=== PATIENT | male | born 1960 | race Two or more races ===

== ENCOUNTER → 2024-03-04 | Outpatient (CLI) | payer MEDICARE, OTHER, SELFPAY ==
[2024-03-04 09:04] LABS: Thyroid Stimulating Hormone 9.48 uIU/mL (0.55-4.78)
== END | disposition home or self-care (01) ==
LOC: SCTO 07:51
PROVIDERS: PCP Family Medicine; Referring Provider Radiology Therapeutic Radiology; Visit Provider Radiology Therapeutic Radiology
DX: C73 Malignant neoplasm of thyroid gland (principal)
CPT/HCPCS: 36415; 84443

== ENCOUNTER 2024-03-05 08:51 | Outpatient (RCR) | payer MEDICARE, OTHER, SELFPAY ==
--- NOTE | 2024-03-05 10:15 | CTCFLWUP_ITS ---
[facility] [address] [place], [place] [address] FOLLOW-UP NOTE Date: 03/05/2024 MR#: [id number] Name: EMILIANA GATES : 1960 Dx: C73 Malignant neoplasm of thyroid gland Identification. 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 TSH cannot be elevated spite being off thyroid for a long period time and was referred to [facility] where h e underwent right neck dissection 11/08/2023 and 6 out of 37 lymph nodes positive with largest metasta tic deposit 3.5 cm with extranodal extension present and paratracheal dissection revealing 6 of 12 ly mph nodes positive for papillary thyroid carcinoma. Size of largest metastatic deposit with 2 cm wit h extranodal extension present. In left neck 36 nodes negative for mets. In anticipation of performing VALADEZ due to extensive neck disease patient has been off thyroid medicati on for several weeks but his TSH has remained insufficiently elevated most recently 9.48 on 03/04/2024 . Spoke to Dr. Whalen about using Thyrogen to raise his TSH and perform radioactive iodine ablation follo wed by total by iodine scan. Spoke to patient who has been doing well off thyroid medications. Patient agreed to procedure and co nsent signed. Radiation safety instructions as well as avoiding iodine related foods discussed. Pharmacy and nuclear medicine informed. Electronically signed by: Surya Hui M.D. 03/05/2024 10:13 AM
== END 2024-03-30 23:59 | disposition home or self-care (01) ==
LOC: SCTC 08:51
PROVIDERS: PCP Family Medicine; Referring Provider Family Medicine; Visit Provider Radiology Therapeutic Radiology
DX: C73 Malignant neoplasm of thyroid gland (principal); E89.0 Postprocedural hypothyroidism
CPT/HCPCS: 99213; G0463

== ENCOUNTER → 2024-04-17 | Outpatient (CLI) | payer MEDICARE, OTHER, SELFPAY ==
--- NOTE | 2024-04-17 08:58 | XR_ITS ---
Examination: Nuclear medicine whole body thyroid scan Exam date and time: 11/25/2023 0800 hours INDICATIONS: Diagnosis malignant neoplasm thyroid gland status post thyroidectomy May 2023 TECHNIQUE AND FINDINGS: Oral administration 151 mCi I-131 Anterior posterior whole body images and pinhole images thyroid bed Increased isotope accumulation in the right and left thyroid bed and tiny area of increased isotope accumulation above the thyroid bed submental IMPRESSION: Increased isotope accumulation in the right and left thyroid bed and area above the thyroid bed
== END | disposition home or self-care (01) ==
LOC: SNUC 08:41
PROVIDERS: PCP Family Medicine; Referring Provider Radiology Therapeutic Radiology; Visit Provider Radiology Therapeutic Radiology
DX: C73 Malignant neoplasm of thyroid gland (principal)
CPT/HCPCS: 78018; A9517

== ENCOUNTER 2024-04-30 07:54 | Outpatient (RCR) | payer MEDICARE, OTHER, SELFPAY ==
--- NOTE | 2024-04-02 09:15 | CTCFLWUP_ITS ---
[facility] [address] [place], [place] [address] FOLLOW-UP NOTE Date: 04/02/2024 MR#: [id number] Name: EMILIANA GATES : 1960 Dx: C73 Malignant neoplasm of thyroid gland Identification. Patient with history of stage II [id number] papillary thyroid carcinoma status post tot al thyroidectomy right neck dissection 05/11/2023. Patient went to [facility] where additional surgery was performed 11/08/2023 revealing 6 of 37 lymph nodes po sitive with largest metastatic deposit 3.5 cm with extranodal extension present and paratracheal diss ection revealing 6 of 12 lymph nodes positive for papillary carcinoma. Tumor involves soft tissue. L neck 36 lymph nodes negative for mets. Patient now being prepared for radioactive iodine 150 mCi with Thyrogen l preparation. Patient feeling well is taking thyroid supplements had a good trip to [place] and back Spoke with nuclear medicine who will arrange to have 150 mCi of reactive with iodine-131 04/17/2024. Patient will get dose of Thyrogen on Monday and Monday, 04/15/2020 08/11/1723 previous to the radioio dine isotope.. Total body iodine scan we done 1 week later. Radiation safety explanation reviewed. Electronically signed by: Surya Hui M.D. 04/02/2024 9:12 AM
== END 2024-04-30 23:59 | disposition home or self-care (01) ==
LOC: SCTC 07:54
PROVIDERS: PCP Family Medicine; Referring Provider Family Medicine; Visit Provider Radiology Therapeutic Radiology
DX: C73 Malignant neoplasm of thyroid gland (principal); E89.0 Postprocedural hypothyroidism
CPT/HCPCS: 96372; 99213; J3240; G0463

== ENCOUNTER → 2024-04-30 | Outpatient (CLI) | payer MEDICARE, OTHER, SELFPAY ==
[2024-04-30 09:50] LABS: Basophils # (Auto) 0.1 Thou/mm3 (0.0-0.2); Basophils % (Auto) 1 % (0-2.5); Eosinophils # (Auto) 0.5 Thou/mm3 (0.0-0.5); Eosinophils % (Auto) 5 % (0-10); Hematocrit 45.6 % (41.0-53.0); Hemoglobin 14.8 g/dL (13.5-16.0); Immature Granulocytes % (Auto) 1 % (0-0); Immature Granulocytes Auto 0.05 Thou/mm3 (0.00-0.00); Lymphocytes # (Auto) 1.9 Thou/mm3 (1.0-4.8); Lymphocytes % (Auto) 17 % (10-50); Mean Corpuscular HGB Conc 32.5 g/dl (31.0-37.0); Mean Corpuscular Hemoglobin 27.7 pg (25.0-35.0); Mean Corpuscular Volume 85 fL (80-100); Monocytes # (Auto) 1.1 Thou/mm3 (0.0-0.8); Monocytes % (Auto) 10 % (0-12); Neutrophils # (Auto) 7.3 Thou/mm3 (1.8-7.7); Neutrophils % (Auto) 67 % (37-80); Nucleated Red Blood Cell % 0 /100 WBC (0); Platelet Count 305 Thou/mm3 (140-440); RDW Standard Deviation 46.5 fL (35.1-43.9); Red Blood Count 5.34 Miln/mm3 (4.50-5.90); White Blood Count 10.9 Thou/mm3 (3.8-10.6)
[2024-04-30 10:09] LABS: Alanine Aminotransferase 28 U/L (10-49); Albumin, Serum 4.8 gm/dL (3.4-4.8); Albumin/Globulin Ratio 1.8 (1.2-2.2); Alkaline Phosphatase 101 U/L (46-116); Anion Gap 8 (7-16); Aspartate Amino Transferase 22 U/L (0-34); BUN/Creatinine Ratio 18 Ratio (12-20); Bilirubin,Total 0.6 mg/dL (0.3-1.2); Blood Urea Nitrogen 18 mg/dL (9-23); Calcium 10.3 mg/dL (8.3-10.6); Calcium (Corrected) 10.3 mg/dL (8.5-10.1); Carbon Dioxide 26.9 mMol/L (20.0-31.0); Chloride 107 mMol/L (98-107); Free T4 (Free Thyroxine) 1.72 ng/dL (0.89-1.76); Globulin 2.7 gm/dL (2.3-3.5); Glucose 94 mg/dL (74-106); Osmolality,Calculated 285 (275-295); Potassium 5.1 mMol/L (3.4-5.1); Sodium 142 mMol/L (136-145); Thyroid Stimulating Hormone 0.04 uIU/mL (0.55-4.78); Total Protein 7.5 gm/dL (5.7-8.2); eGFR > 60 See Note
[2024-05-04 13:49] LABS: Thyroglobulin Antibodies >1000 IU/mL (< OR = 1)
[2024-05-06 06:49] LABS: Thyroglobulin <0.1 ng/mL
== END | disposition home or self-care (01) ==
PROVIDERS: PCP Family Medicine; Referring Provider Radiology Therapeutic Radiology; Visit Provider Radiology Therapeutic Radiology
DX: C73 Malignant neoplasm of thyroid gland (principal)
CPT/HCPCS: 36415; 80053; 84432; 84439; 84443; 85025; 86800

== ENCOUNTER → 2024-06-21 | Outpatient (CLI) | payer MEDICARE, OTHER, SELFPAY ==
[2024-06-21 08:55] LABS: Collection Type, Urine Clean Catch; Squamous Epithelial Cell,Urine 0 /hpf (0-5)
[2024-06-21 09:38] LABS: Bilirubin,Urine Negative (Negative); Blood,Urine Negative (Negative); Clarity,Urine Clear (Clear/Hazy); Color,Urine Lt-Yellow (Lt Yel-Yel); Glucose, Urine Negative (Negative); Ketones,Urine Negative (Negative); Leukocyte Esterase,Urine Negative (Negative); Nitrite,Urine Negative (Negative); PH,Urine 5.5 (5.0-7.0); Protein,Urine Negative (Neg - Trace); RBC,Urine 1 /hpf (0-3); Specific Gravity,Urine 1.023 (1.001-1.035); Urobilinogen,Urine Negative mg/dL (0.0-1.0); WBC,Urine 1 /hpf (0-5)
[2024-06-21 09:43] LABS: Glucose Estimated Average 117 mg/dL (80-131); Hemoglobin A1C 5.7 % Hgb (4.8-6.0)
[2024-06-21 09:49] LABS: Cardiac Risk Estimate 3.9 RATIO (4.0-6.7); Cholesterol 148 mg/dL (132-200); HDL Cholesterol 38 mg/dL (40-60); LDL Cholesterol,Calculated 91 mg/dL (0-130); PSA Medicare Annual Scrn 3.17 ng/mL (0-4.00); Triglycerides 96 mg/dL (30-150)
== END | disposition home or self-care (01) ==
LOC: COPL 08:16
PROVIDERS: PCP Student in an Organized Health Care Education/Training Program; Referring Provider Student in an Organized Health Care Education/Training Program; Visit Provider Student in an Organized Health Care Education/Training Program
DX: R10.9 Unspecified abdominal pain (principal); I10 Essential (primary) hypertension; E78.00 Pure hypercholesterolemia, unspecified; Z12.5 Encounter for screening for malignant neoplasm of prostate
CPT/HCPCS: 36415; 80061; 81001; 83036; 84153; G0103

== ENCOUNTER → 2024-07-01 | Outpatient (CLI) | payer MEDICARE, OTHER, SELFPAY ==
[2024-07-01 09:27] LABS: Basophils % (Auto) 0 % (0-2.5); Eosinophils # (Auto) 0.4 Thou/mm3 (0.0-0.5); Eosinophils % (Auto) 6 % (0-10); Hematocrit 43.2 % (41.0-53.0); Hemoglobin 14.1 g/dL (13.5-16.0); Immature Granulocytes % (Auto) 0 % (0-0); Immature Granulocytes Auto 0.03 Thou/mm3 (0.00-0.00); Lymphocytes # (Auto) 1.6 Thou/mm3 (1.0-4.8); Lymphocytes % (Auto) 22 % (10-50); Mean Corpuscular HGB Conc 32.6 g/dl (31.0-37.0); Mean Corpuscular Hemoglobin 27.8 pg (25.0-35.0); Mean Corpuscular Volume 85 fL (80-100); Monocytes # (Auto) 0.7 Thou/mm3 (0.0-0.8); Monocytes % (Auto) 10 % (0-12); Neutrophils # (Auto) 4.3 Thou/mm3 (1.8-7.7); Neutrophils % (Auto) 61 % (37-80); Nucleated Red Blood Cell % 0 /100 WBC (0); Platelet Count 194 Thou/mm3 (140-440); RDW Standard Deviation 45.1 fL (35.1-43.9); Red Blood Count 5.08 Miln/mm3 (4.50-5.90); White Blood Count 7.1 Thou/mm3 (3.8-10.6)
[2024-07-01 09:54] LABS: Alanine Aminotransferase 27 U/L (10-49); Albumin/Globulin Ratio 1.6 (1.2-2.2); Alkaline Phosphatase 93 U/L (46-116); Anion Gap 10 (7-16); Aspartate Amino Transferase 25 U/L (0-34); BUN/Creatinine Ratio 18 Ratio (12-20); Bilirubin,Total 0.9 mg/dL (0.3-1.2); Blood Urea Nitrogen 16 mg/dL (9-23); Calcium 9.3 mg/dL (8.3-10.6); Calcium (Corrected) 9.3 mg/dL (8.5-10.1); Carbon Dioxide 23.2 mMol/L (20.0-31.0); Chloride 111 mMol/L (98-107); Creatinine (Component) 0.9 mg/dL (0.6-1.3); Free T4 (Free Thyroxine) 1.48 ng/dL (0.89-1.76); Globulin 2.5 gm/dL (2.3-3.5); Glucose 93 mg/dL (74-106); Osmolality,Calculated 288 (275-295); Sodium 144 mMol/L (136-145); Thyroid Stimulating Hormone 0.01 uIU/mL (0.55-4.78); Total Protein 6.5 gm/dL (5.7-8.2); eGFR > 60 See Note
[2024-07-03 17:52] LABS: Thyroglobulin Antibodies >1000 IU/mL (< OR = 1)
[2024-07-04 07:08] LABS: Thyroglobulin <0.1 ng/mL
== END | disposition home or self-care (01) ==
LOC: SCTO 07:47
PROVIDERS: PCP Family Medicine; Referring Provider Radiology Therapeutic Radiology; Visit Provider Radiology Therapeutic Radiology
DX: C73 Malignant neoplasm of thyroid gland (principal)
CPT/HCPCS: 36415; 80053; 84432; 84439; 84443; 85025; 86800

== ENCOUNTER 2024-07-03 07:53 | Outpatient (RCR) | payer MEDICARE, OTHER, SELFPAY ==
--- NOTE | 2024-07-03 08:45 | CTCFLWUP_ITS ---
[facility] [address] [place], [place] [address] FOLLOW-UP NOTE Date: 07/03/2024 MR#: [id number] Name: EMILIANA GATES : 1960 Dx: C73 Malignant neoplasm of thyroid gland Identification. Patient with history of stage II [id number] papillary thyroid carcinoma status post total thyroidectomy right neck dissection 05/11/2023. Went to [facility] where additional surgery performed 11/08/2023 revealing 6 of 37 lymph nodes positive with largest metastatic deposit 3.5 cm with extranodal extension present and paratracheal dissection revealing 6 of 12 lymph nodes positive for papillary carcinoma. Tumor involves soft tissue. Left neck 36 lymph nodes negative for mets. Patient completed 150 mCi following usual radiation safety procedures with postop scan 04/17/2024 showing uptake in the right and left thyroid with no other sign of mets. Patient currently on 150 mcg of Synthroid. Labs 2 days ago shows free T4 1.48 (0.89 -1.76) TSH 0.01 thyroglobulin pending. Patient is feeling well lungs are clear. Put in a call to Dr. Whalen at [facility] regarding whether we should keep the Synthroid at 150 or reducing to 137. In any case I will see him in 3 months with another labs including thyroid function test thyroglobulin and thyroglobulin antibody and will inform about Dr. Whalen's recommendation in the meantime. Electronically signed by: Surya Hui M.D. 07/03/2024 8:43 AM
== END 2024-07-29 23:59 | disposition home or self-care (01) ==
LOC: SCTC 07:53
PROVIDERS: PCP Family Medicine; Referring Provider Family Medicine; Visit Provider Radiology Therapeutic Radiology
DX: C73 Malignant neoplasm of thyroid gland (principal); E89.0 Postprocedural hypothyroidism; Z79.890 Hormone replacement therapy; Z92.3 Personal history of irradiation
CPT/HCPCS: 99213; G0463

== ENCOUNTER → 2024-10-08 | Outpatient (CLI) | payer MEDICARE, OTHER, SELFPAY ==
[2024-10-08 09:21] LABS: Basophils # (Auto) 0.1 Thou/mm3 (0.0-0.2); Basophils % (Auto) 1 % (0-2.5); Eosinophils # (Auto) 0.3 Thou/mm3 (0.0-0.5); Eosinophils % (Auto) 5 % (0-10); Hematocrit 41.6 % (41.0-53.0); Hemoglobin 14.3 g/dL (13.5-16.0); Immature Granulocytes % (Auto) 0 % (0-0); Immature Granulocytes Auto 0.02 Thou/mm3 (0.00-0.00); Lymphocytes # (Auto) 1.9 Thou/mm3 (1.0-4.8); Lymphocytes % (Auto) 27 % (10-50); Mean Corpuscular HGB Conc 34.4 g/dl (31.0-37.0); Mean Corpuscular Hemoglobin 28.4 pg (25.0-35.0); Mean Corpuscular Volume 83 fL (80-100); Monocytes # (Auto) 0.7 Thou/mm3 (0.0-0.8); Monocytes % (Auto) 10 % (0-12); Neutrophils # (Auto) 4.1 Thou/mm3 (1.8-7.7); Neutrophils % (Auto) 58 % (37-80); Nucleated Red Blood Cell % 0 /100 WBC (0); Platelet Count 211 Thou/mm3 (140-440); RDW Standard Deviation 45.7 fL (35.1-43.9); Red Blood Count 5.03 Miln/mm3 (4.50-5.90); White Blood Count 7.1 Thou/mm3 (3.8-10.6)
[2024-10-08 09:32] LABS: Glucose Estimated Average 114 mg/dL (80-131); Hemoglobin A1C 5.6 % Hgb (4.8-6.0)
[2024-10-08 09:43] LABS: Alanine Aminotransferase 22 U/L (10-49); Albumin, Serum 4.5 gm/dL (3.4-4.8); Albumin/Globulin Ratio 1.8 (1.2-2.2); Alkaline Phosphatase 100 U/L (46-116); Anion Gap 11 (7-16); BUN/Creatinine Ratio 15 Ratio (12-20); Bilirubin,Total 1.4 mg/dL (0.3-1.2); Blood Urea Nitrogen 15 mg/dL (9-23); Calcium 9.5 mg/dL (8.3-10.6); Calcium (Corrected) 9.5 mg/dL (8.5-10.1); Carbon Dioxide 26.1 mMol/L (20.0-31.0); Cardiac Risk Estimate 3.5 RATIO (4.0-6.7); Chloride 107 mMol/L (98-107); Cholesterol 122 mg/dL (132-200); Free T4 (Free Thyroxine) 1.87 ng/dL (0.89-1.76); Globulin 2.5 gm/dL (2.3-3.5); Glucose 103 mg/dL (74-106); HDL Cholesterol 35 mg/dL (40-60); LDL Cholesterol,Calculated 68 mg/dL (0-130); Osmolality,Calculated 287 (275-295); Potassium 4.7 mMol/L (3.4-5.1); Sodium 144 mMol/L (136-145); Thyroid Stimulating Hormone 0.01 uIU/mL (0.55-4.78); Triglycerides 93 mg/dL (30-150); eGFR > 60 See Note
[2024-10-11 13:50] LABS: Thyroglobulin Antibodies >1000 IU/mL (< OR = 1)
[2024-10-14 07:08] LABS: Thyroglobulin <0.1 ng/mL
== END | disposition home or self-care (01) ==
LOC: SCTO 07:56
PROVIDERS: PCP Student in an Organized Health Care Education/Training Program; Referring Provider Radiology Therapeutic Radiology; Visit Provider Radiology Therapeutic Radiology
DX: C73 Malignant neoplasm of thyroid gland (principal); E78.00 Pure hypercholesterolemia, unspecified; I10 Essential (primary) hypertension
CPT/HCPCS: 36415; 80053; 80061; 83036; 84432; 84439; 84443; 85025; 86800

== ENCOUNTER 2024-10-10 08:20 | Day surgery (SDC) | payer MEDICARE, OTHER, SELFPAY ==
[2024-10-09 14:50] VITALS: BMI 30.1
[2024-10-10] VITALS (11 sets, daily range): BP systolic 104–139; BP diastolic 75–97; PULSE 63–77; RESP 12–19; TEMP 36.4–36.5; O2SAT 95–100; BMI 30.1
[2024-10-10] MEDS: SODIUM CHLORIDE 0.9% 500 ML 500 ML 20 ML IV (10:53)
[2024-10-10] MEDS: MIDAZOLAM INJ 1 MG/ML VIAL 2 ML 2 MG IVP ×2 (10:57→11:07)
[2024-10-10] MEDS: DiphenhydrAMINE INJ 50 MG/ML VIAL 25 MG IVP (10:57)
[2024-10-10] MEDS: fentaNYL CIT INJ 50 mCg/ML AMP 2ML IVP (10:57)
== END 2024-10-10 12:10 | disposition home or self-care (01) ==
PROVIDERS: PCP Family Medicine; Referring Provider Internal Medicine Gastroenterology; Visit Provider Internal Medicine Gastroenterology
PROC: 0DBE8ZX Excision of Large Intestine, Via Natural or Artificial Opening Endoscopic, Diagnostic (ICD-10-PCS; CPT 45380; principal; 2024-10-10 09:00)
DX: Z12.11 Encounter for screening for malignant neoplasm of colon (principal); K63.89 Other specified diseases of intestine; K64.9 Unspecified hemorrhoids; I10 Essential (primary) hypertension; K62.1 Rectal polyp; K63.5 Polyp of colon
CPT/HCPCS: 45385; 45380; J1200; J2250; J3010; J7040

== ENCOUNTER 2024-10-30 08:25 | Outpatient (RCR) | payer MEDICARE, SELFPAY ==
--- NOTE | 2024-10-30 09:30 | CTCFLWUP_ITS ---
[facility] [address] [place], [place] [address] FOLLOW-UP NOTE Date: 10/30/2024 MR#: [id number] Name: EMILIANA GATES : 1960 Dx: C73 Malignant neoplasm of thyroid gland Identification. Patient with history of stage II [id number] papillary thyroid carcinoma status post total thyroidectomy right neck dissection 05/11/2023. Went to [facility] where additional surgery performed 11/08/2023 revealing 6 of 37 lymph nodes positive with largest deposit 3.5 cm with extranodal extension present and paratracheal dissection revealing 6 of 12 lymph nodes positive papillary carcinoma. Tumor involves soft tissue. Left neck 36 lymph nodes negative for mets. Patient completed 150 mCi following usual radiation safety procedures with post radioiodine scan showing uptake in right and left thyroid with no other sign of mets. 150 mcg Synthroid labs showed thyroglobulin less than 0.1 TSH 0.01 Free T4 slightly high at 1.87 CMP largely unremarkable including normal calcium. Patient is feeling well overall. Exam of his neck and chest essentially unremarkable. Assessment #1 stage II papillary thyroid carcinoma initial surgery 05/11/2023. Additional surgery 11/08/2023 for considerable residual cancer in the neck and peritracheal region. #2. Postop radioiodine 150 mCi with total body scan 04/17/2024 some uptake in the thyroid region no distant mets. Thyroglobulin has been in the ideal low range. #3. slightly high T4 on 150 mcg of Synthroid., We will decrease Synthroid to 137 mcg. #4. Told patient about the need to be seen by accounting/finance tutor for possibility of cardiac arrhythmia associated with long-term low TSH needed to suppress thyroid cancer recurrence. #5. Told patient to be followed by primary care physician about osteoporosis which could also be accelerated by long-term low TSH needed to suppress thyroid cancer recurrence. #6. Ultrasound before next visit along with usual labs and thyroid functions and thyroglobulin markers Cc: Bernardo Love MD: Electronically signed by: Surya Hui M.D. 10/30/2024 9:27 AM
== END 2024-11-28 23:59 | disposition home or self-care (01) ==
LOC: SCTC 08:25
PROVIDERS: PCP Family Medicine; Referring Provider Family Medicine; Visit Provider Radiology Therapeutic Radiology
DX: C73 Malignant neoplasm of thyroid gland (principal); E89.0 Postprocedural hypothyroidism; Z92.3 Personal history of irradiation; Z79.890 Hormone replacement therapy
CPT/HCPCS: 99212; G0463

== ENCOUNTER → 2024-11-18 | Outpatient (CLI) | payer MEDICARE, SELFPAY ==
--- NOTE | 2024-11-18 13:30 | XR_ITS ---
Examination: Thyroid sonography TECHNIQUE: Grayscale sonographic images thyroid fossa region INDICATIONS: Diagnosis thyroid cancer thyroidectomy 2023 Date and time: November 18, 2024 1345 hours Comparison 01/23/2023 FINDINGS: Soft tissue masses lateral to the left thyroid fossa, 10 x 9 mm, 30 x 32 mm, 11 x 10 mm IMPRESSION: Suspicious for metastatic nodules in the soft tissue left neck, recommend CT soft tissue neck post intravenous contrast follow-up
== END | disposition home or self-care (01) ==
LOC: CDIM 13:29
PROVIDERS: PCP Student in an Organized Health Care Education/Training Program; Referring Provider Radiology Therapeutic Radiology; Visit Provider Radiology Therapeutic Radiology
DX: C73 Malignant neoplasm of thyroid gland (principal)
CPT/HCPCS: 76536

== ENCOUNTER → 2024-12-06 | Outpatient (CLI) | payer MEDICARE, SELFPAY ==
--- NOTE | 2024-12-06 13:00 | XR_ITS ---
Examination: Bone densitometry Date and time of exam:December 16, 2024 1306 hours INDICATIONS: 64-year-old male with diagnosis age related osteoporosis, levothyroxine 1 year Technique: Lumbar spine and hip total bone mineralization values of an calculated. Peak reference and age match control results have been displayed. Findings: Lumbar spine total bone mineralization is0.975 gm/cm2. This is 1.1 below standard deviations below peak reference. This is 0.2 standard deviations below age-matched controls. Hip total bone mineralization is 0.953 gm/cm2 This is 0.8 standard deviations below peak reference. This is 0.2 standard deviations below age-matched controls Impression: There is osteopenia based on lumbar spine measurements. There is osteopenia based on hip measurements
== END | disposition home or self-care (01) ==
PROVIDERS: PCP Student in an Organized Health Care Education/Training Program; Referring Provider Student in an Organized Health Care Education/Training Program; Visit Provider Student in an Organized Health Care Education/Training Program
DX: M85.89 Other specified disorders of bone density and structure, multiple sites (principal)
CPT/HCPCS: 77080

== ENCOUNTER → 2025-01-01 | Outpatient (CLI) | payer MEDICARE, SELFPAY ==
[2025-01-01 08:32] LABS: Basophils # (Auto) 0.1 Thou/mm3 (0.0-0.2); Basophils % (Auto) 1 % (0-2.5); Eosinophils # (Auto) 0.5 Thou/mm3 (0.0-0.5); Eosinophils % (Auto) 6 % (0-10); Hematocrit 42.8 % (41.0-53.0); Hemoglobin 14.0 g/dL (13.5-16.0); Immature Granulocytes Auto 0.03 Thou/mm3 (0.00-0.00); Lymphocytes # (Auto) 2.1 Thou/mm3 (1.0-4.8); Lymphocytes % (Auto) 24 % (10-50); Mean Corpuscular HGB Conc 32.7 g/dl (31.0-37.0); Mean Corpuscular Hemoglobin 28.2 pg (25.0-35.0); Mean Corpuscular Volume 86 fL (80-100); Monocytes # (Auto) 0.7 Thou/mm3 (0.0-0.8); Monocytes % (Auto) 8 % (0-12); Neutrophils # (Auto) 5.4 Thou/mm3 (1.8-7.7); Neutrophils % (Auto) 61 % (37-80); Nucleated Red Blood Cell # 0.00 Thou/mm3 (0.00-0.00); Nucleated Red Blood Cell % 0 /100 WBC (0); Platelet Count 223 Thou/mm3 (140-440); RDW Standard Deviation 46.5 fL (35.1-43.9); Red Blood Count 4.97 Miln/mm3 (4.50-5.90); White Blood Count 8.8 Thou/mm3 (3.8-10.6)
[2025-01-01 08:59] LABS: Alanine Aminotransferase 22 U/L (10-49); Albumin, Serum 4.3 gm/dL (3.4-4.8); Albumin/Globulin Ratio 2.0 (1.2-2.2); Alkaline Phosphatase 88 U/L (46-116); Anion Gap 13 (7-16); Aspartate Amino Transferase 22 U/L (0-34); BUN/Creatinine Ratio 15 Ratio (12-20); Bilirubin,Total 1.0 mg/dL (0.3-1.2); Blood Urea Nitrogen 15 mg/dL (9-23); Calcium 10.3 mg/dL (8.3-10.6); Calcium (Corrected) 10.3 mg/dL (8.5-10.1); Carbon Dioxide 22.5 mMol/L (20.0-31.0); Chloride 109 mMol/L (98-107); Creatinine (Component) 1.0 mg/dL (0.6-1.3); Free T4 (Free Thyroxine) 1.53 ng/dL (0.89-1.76); Globulin 2.2 gm/dL (2.3-3.5); Glucose 100 mg/dL (74-106); Osmolality,Calculated 287 (275-295); Potassium 4.4 mMol/L (3.4-5.1); Sodium 144 mMol/L (136-145); Thyroid Stimulating Hormone 0.01 uIU/mL (0.55-4.78); Total Protein 6.5 gm/dL (5.7-8.2); eGFR > 60 See Note
== END | disposition home or self-care (01) ==
LOC: SCTO 07:43
PROVIDERS: PCP Family Medicine; Referring Provider Radiology Therapeutic Radiology; Visit Provider Radiology Therapeutic Radiology
DX: C73 Malignant neoplasm of thyroid gland (principal)
CPT/HCPCS: 36415; 80053; 84439; 84443; 85025

== ENCOUNTER → 2025-01-23 | Outpatient (CLI) | payer MEDICARE, OTHER, SELFPAY ==
--- NOTE | 2025-01-23 10:00 | XR_ITS ---
Examination: CT soft tissue neck, with intravenous contrast. 2-D coronal reconstructions. 2-D sagittal reconstructions. Date and time of exam :January 23, 2025 1009 hours, comparison September 14, 2023 INDICATIONS: Diagnosis thyroid cancer post thyroidectomy 2023. CTDI: vol (mGy):16.6 DLP: (mGycm):503 Technique: 1.25 mm axial sections of the neck of the obtained. Coronal and sagittal reconstructions have been obtained. Intravenous contrast administered 60 cc Isovue-370. Low dose protocols were performed. One or more of the following dose reduction techniques were used; automated exposure control, adjustment of the mA and/or KV according to patient size, use of iterative reconstruction technique. Findings: Symmetrical nasopharynx oropharynx Subcentimeter carotid triangle lymphadenopathy 15 mm lymph node near the right mandibular angle The larger posterior right cervical lymph node has apparently been resected The larynx appears normal Normal epiglottis No mass in the thyroid beds IMPRESSION: Cervical lymphadenopathy as above The larger posterior right cervical lymph node superiorly been resected Suggest continued 6 month follow-up CT soft tissue neck
== END | disposition home or self-care (01) ==
PROVIDERS: PCP Family Medicine; Referring Provider Radiology Therapeutic Radiology; Visit Provider Radiology Therapeutic Radiology
DX: R59.0 Localized enlarged lymph nodes (principal); C73 Malignant neoplasm of thyroid gland
CPT/HCPCS: 70491; A4649; Q9967

== ENCOUNTER 2025-01-30 08:17 | Outpatient (RCR) | payer MEDICARE, OTHER, SELFPAY ==
--- NOTE | 2025-01-30 09:32 | CTCFLWUP_ITS ---
[facility] [address] [place], [place] [address] FOLLOW-UP NOTE Date: 01/30/2025 MR#: [id number] Name: EMILIANA GATES : 1960 Dx: C73 Malignant neoplasm of thyroid gland Identification. Patient with history of stage II [id number] papillary thyroid carcinoma status post total thyroidectomy right neck dissection 05/11/2023. Went to [facility] for additional surgery performed 11/08/2023 revealing 6 of 37 lymph nodes positive from right neck with largest deposit 3.5 cm with extension present and paratracheal dissection revealing 6 of 12 lymph nodes positive papillary carcinoma. Tumor involves soft tissue. Left neck 36 lymph nodes negative for mets. Patient completed 150 mCi using usual radiation safety procedures with post radioiodine scan showing uptake in right and left thyroid with no other site of mets. Recent ultrasound 11/18/2024 soft tissue mass lateral to the left thyroid fossa. CT neck 01/23/2025 subcentimeter carotid triangle lymphadenopathy 15 mm lymph node near right mandibular angle. The larger posterior right cervical lymph node superiorly has been resected. Recommended 6 months follow-up of CT soft tissue neck. Most recent labs 01/01/2025 unremarkable CBC CMP including calcium which was high normal at 10.3. TSH is low at 0.01 with free T4 1.53 thyroglobulin 10/08/2024 was less than 0.1. A#1. Patient with history of stage [id number] papillary thyroid carcinoma status post total thyroidectomy right neck dissection 05/11/2013. A#2. Additional removing 6 lymph nodes positive from right neck and 6 from peritracheal area. A#3. Postop radioiodine 150 mCi given with no sign of any distant mets thereafter. A#4. Most recent ultrasound suggest possible neck mass with CT suggesting physiologic lymphadenopathy and postop changes. A#5. Patient's thyroglobulin remains low and patient is euthyroid with TSH remaining low which is desirable for high risk patients. A#6. Told patient to have primary MD check for symptoms of osteoporosis and atrial fibrillation which is sometimes a complication of low TSH. A#6. I will see patient in [address] repeat of the neck and possible PET scan will be considered on next visit. Cc: Bernardo Love MD Electronically signed by: Surya Hui M.D. 01/30/2025 9:29 AM
== END 2025-02-28 23:59 | disposition home or self-care (01) ==
LOC: SCTC 08:17
PROVIDERS: PCP Family Medicine; Referring Provider Family Medicine; Visit Provider Radiology Therapeutic Radiology
DX: Z08 Encounter for follow-up examination after completed treatment for malignant neoplasm (principal); Z85.850 Personal history of malignant neoplasm of thyroid; E89.0 Postprocedural hypothyroidism; Z92.3 Personal history of irradiation
CPT/HCPCS: 99213; G0463

== ENCOUNTER → 2025-04-30 | Outpatient (CLI) | payer MEDICARE, OTHER, SELFPAY ==
[2025-04-30 09:31] LABS: Free T4 (Free Thyroxine) 1.67 ng/dL (0.89-1.76); Thyroid Stimulating Hormone 0.02 uIU/mL (0.55-4.78)
[2025-05-03 13:49] LABS: Thyroglobulin Antibodies >1000 IU/mL (< OR = 1)
[2025-05-05 07:33] LABS: Thyroglobulin <0.1 ng/mL
== END | disposition home or self-care (01) ==
LOC: SCTO 08:11
PROVIDERS: PCP Family Medicine; Referring Provider Radiology Therapeutic Radiology; Visit Provider Radiology Therapeutic Radiology
DX: C73 Malignant neoplasm of thyroid gland (principal)
CPT/HCPCS: 36415; 84432; 84439; 84443; 86800